=== PATIENT | male | born 1970 | race Caucasian/White ===

== ENCOUNTER 2022-09-26 08:32 | Oncology outpatient (recurring) (ONCR) | payer OTHER, SELFPAY ==
[2022-09-26 09:55] LABS: Basophils % 0.4 %; Eosinophils # 0.1 10^3/uL (0.0-0.8); Eosinophils % 0.6 %; Hemoglobin 11.7 g/dL (11.7-16.6); Lymphocytes # 3.1 10^3/uL (0.8-4.8); Lymphocytes % 33.4 %; Mean Corpuscular Volume 63.4 fl (80-94); Monocytes # 0.7 10^3/uL (0.2-0.9); Monocytes % 7.7 %; Neutrophils # 5.32 10^3/uL (1.8-7.7); Neutrophils % 57.5 %; Nucleated Red Blood Cells % 0 %; Platelet Count 250 10^3/cmm (130-400); Positive M 1; Red Blood Count 6.15 10^6/uL (4.1-5.3); Red Cell Distribution Width 16.1 % (12.1-15.1); White Blood Count 9.3 10^3/uL (4.0-10.0)
[2022-09-26 09:59] LABS: Reticulocyte % 1.9 % (0.5-2.0)
[2022-09-26 10:06] LABS: Mean Platelet Volume 8.9 fL (7.4-10.4)
[2022-09-26 10:09] LABS: Alanine Aminotransferase 11 U/L (0-41); Albumin Level 3.9 g/dL (3.5-5.2); Alkaline Phosphatase 48 U/L (40-130); Anion Gap 10.8 (5-19); Aspartate Amino Transferase 14 U/L (0-40); Blood Urea Nitrogen 10 mg/dL (6-20); Carbon Dioxide 27 mmol/L (22-29); Chloride 104 mmol/L (98-107); Ferritin 141 ng/mL (30-400); Globulin 2.9 g/dL (1.3-4.6); Glomerular Filtration Rate 88.6 mL/min (90-130); Glucose 106 mg/dL (65-115); Iron 111 ug/dL (59-158); Lactate Dehydrogenase 125 U/L (135-225); Osmolality Calculated 285 mOsm/kg (285-295); Percent Saturation 45.8 % (20-50); Potassium 3.8 mmol/L (3.5-5.1); Sodium 138 mmol/L (136-145); Total Bilirubin 0.4 mg/dL (0.15-1.2); Total Iron Binding Capacity 242 mcg/dl; Total Protein 6.8 g/dL (6.6-8.7); Unsaturated Iron Binding 131 ug/dL (112-347)
[2022-09-26 10:58] LABS: LAB Peripheral Smear Sent for Review
== END 2022-10-19 23:59 | disposition home or self-care (01) ==
PROVIDERS: PCP Emergency Medicine Emergency Medical Services; Visit Provider Internal Medicine Medical Oncology
DX: D64.9 Anemia, unspecified (principal); F17.210 Nicotine dependence, cigarettes, uncomplicated; Z83.2 Family history of diseases of the blood and blood-forming organs and certain disorders involving the immune mechanism; Z87.11 Personal history of peptic ulcer disease
CPT/HCPCS: 36415; 80053; 82728; 82746; 83540; 83550; 83615; 85025; 85045; 99204